=== PATIENT | male | born 1985 | race Caucasian/White ===

== ENCOUNTER 2017-01-28 12:21 | Emergency (ER) | payer SELFPAY ==
[~2017-01-28] VITALS: Ht 180.3 cm; Wt 111.0 kg
[2017-01-28 13:07] VITALS: BP 133/98
[2017-01-28] MEDS ORDERED: IBUPROFEN 200 MG TABLET ONE (14:38)
[2017-01-28] MEDS ORDERED: IBUPROFEN 200 MG TABLET PO ONE (15:00)
== END 2017-01-28 14:42 | disposition home or self-care (01) ==
LOC: ED 14:30
DX: K08.89 Other specified disorders of teeth and supporting structures (principal)
CPT/HCPCS: 99283

== ENCOUNTER 2017-10-06 13:18 | Emergency (ER) | payer MEDICAID, OTHER ==
[~2017-10-06] VITALS: Ht 180.3 cm; Wt 122.4 kg
[2017-10-06 13:20] VITALS: BP 147/97
[2017-10-06] MEDS ORDERED: BENZOCAINE 20% SPRAY 0.5ML ONE (13:45)
== END 2017-10-06 14:09 | disposition home or self-care (01) ==
LOC: ED 14:00
DX: K04.7 Periapical abscess without sinus (principal); K08.89 Other specified disorders of teeth and supporting structures
CPT/HCPCS: 41800; 99283

== ENCOUNTER 2019-05-20 09:41 | Emergency (ER) | payer SELFPAY ==
[~2019-05-20] VITALS: Ht 177.8 cm; Wt 94.8 kg
--- NOTE | 2019-05-20 10:30 | NUR ---
TO STEPHENIE FROM [facility]
--- NOTE | 2019-05-20 10:48 | NUR ---
PT. IS A & O X 4 WITH A GCS OF 15 AND HAS A C/O LEFT UPPER QUAD ABD. PAIN. PT. STATES HE WAS LIFTING CONCRETE A WEEK AGO AND NOW FEELS THAT HE HAS A HERNIA. PT. IS PINK, WARM AND DRY. LUNGS ARE CTA. MM ARE PINK AND MOIST WITH PULSES +2 THROUGHOUT. PT. GUTHRIE WNL. PT.'S ABD. IS SOFT AND FLAT WITH BS + X 4 QUADS. PT. IS RESTING WITH THE SIDERAILS UP X 2 AND THE CALL LIGHT IN PLACE. PT. WAS GIVEN BLANKETS FOR WARMTH.
--- NOTE | 2019-05-20 11:34 | NUR ---
PT. IS RESTING WITHOUT CONCERNS. VSS.
[2019-05-20 12:00] VITALS: BP 132/86
--- NOTE | 2019-05-20 12:00 | NUR ---
RECEIVED REPORT FROM NESTOR GRIFFIN. ASSUMING CARE AT THIS TIME.
--- NOTE | 2019-05-20 12:01 | NUR ---
PT RESTING COMFORTABLY ON GURNEY. KONSTANTIN.
[2019-05-20 12:03] LABS: BASOPHILS # (AUTO) 0.04 x10^3/uL (0-0.1); BASOPHILS % (AUTO) 0 % (0-1); EOSINOPHILS # (AUTO) 0.22 x10^3/uL (0-0.4); EOSINOPHILS % (AUTO) 2 % (1-7); LYMPHOCYTES # (AUTO) 2.42 x10^3/uL (1-3.4); LYMPHOCYTES % (AUTO) 26 % (22-44); MD NO; MEAN CORPUSCULAR HEMOGLOBIN 31.2 pg (27.5-34.5); MEAN CORPUSCULAR HGB CONC 33.7 g/dL (33.2-36.2); MEAN CORPUSCULAR VOLUME 92.7 fL (81-97); MEAN PLATELET VOLUME 8.9 fL (7.4-10.4); MONOCYTES # (AUTO) 0.69 x10^3/uL (0.2-0.8); MONOCYTES % (AUTO) 7 % (2-9); NEUTROPHILS # (AUTO) 6.11 x10^3/uL (1.8-6.8); NEUTROPHILS % (AUTO) 65 % (42-75); PLATELET COUNT 255 x10^3/uL (130-400); RED BLOOD COUNT 5.12 x10^6/uL (4.38-5.82); RED CELL DISTRIBUTION WIDTH 13.4 % (9.4-14.8)
[2019-05-20 12:09] LABS: ALBUMIN 3.8 g/dL (3.4-5.0); ANION GAP 8 mmol/L (5-15); CALCIUM 8.6 mg/dL (8.5-10.1); CHLORIDE 107 mmol/L (98-107); CREATININE 0.96 mg/dL (0.7-1.3)
--- NOTE | 2019-05-20 12:19 | NUR ---
ALL RESULTS ARE BACK AT THIS TIME. CHART UP FOR RECHECK.
== END 2019-05-20 12:46 | disposition home or self-care (01) ==
LOC: ED 10:35
DX: K43.9 Ventral hernia without obstruction or gangrene (principal)
CPT/HCPCS: 36415; 80048; 82040; 85025; 99283